=== PATIENT | male | born 1965 | race Caucasian/White ===

== ENCOUNTER 2018-12-25 16:20 | Emergency (ER) | payer BC ==
[~2018-12-25] VITALS: Ht 180.3 cm; Wt 129.3 kg
[~2018-12-25 16:20] MED LIST: IBUPROFEN600 MG ORAL; NORCO 5-325 TA1 EACH ORAL; ZOCOR20 MG ORAL
[2018-12-25] MEDS ORDERED: ATENOLOL25 MG ORAL (16:31)
[2018-12-25] MEDS ORDERED: CRESTOR10 M2 ORAL (16:31)
[2018-12-25] MEDS ORDERED: Isovue-300 100ml vial INJ PRN (16:45)
--- NOTE | 2018-12-25 17:30 | NUR ---
ED Nurse Note:pt. came with c/o sore throat, VSS, blood sent to labs, pt. went to CT scan
[2018-12-25 17:51] LABS: BASOPHILS % (AUTO) 1.5 % (0.0-2.0); EOSINOPHILS % (AUTO) 1.1 % (0.0-3.0); HEMATOCRIT 38.1 % (42.0-52.0); LYMPHOCYTES % (AUTO) 27.6 % (20.0-45.0); MEAN CORPUSCULAR VOLUME 93 FL (80-99); MONOCYTES % (AUTO) 6.9 % (1.0-10.0); NEUTROPHILS % (AUTO) 62.8 % (45.0-75.0); PLATELET COUNT 289 K/UL (150-450); RED BLOOD COUNT 4.09 M/UL (4.70-6.10); WHITE BLOOD COUNT 6.9 K/UL (4.8-10.8)
[2018-12-25 17:57] LABS: ANION GAP 8 mmol/L (5-15); BLOOD UREA NITROGEN 7 mg/dL (7-18); CALCIUM 9.6 MG/DL (8.5-10.1); CARBON DIOXIDE 27 MMOL/L (21-32); CHLORIDE 98 MMOL/L (98-107); CREATININE 0.9 MG/DL (0.55-1.30); POTASSIUM 4.2 MMOL/L (3.5-5.1); SODIUM 133 MMOL/L (136-145)
[2018-12-25 18:05] VITALS: BP 136/91
[2018-12-25 18:12] LABS: ALANINE AMINOTRANSFERASE 28 U/L (12-78); ALBUMIN 4.6 G/DL (3.4-5.0); ALBUMIN/GLOBULIN RATIO 1.6 (1.0-2.7); ALKALINE PHOSPHATASE 92 U/L (46-116); ASPARTATE AMINO TRANSFERASE 25 U/L (15-37); BILIRUBIN,TOTAL 0.6 MG/DL (0.2-1.0)
[2018-12-25] MEDS ORDERED: IBUPROFEN600 MG ORAL (19:17)
--- NOTE | 2018-12-25 19:17 | Emergency Room Report ---
History of Present Illness General Chief Complaint: Sore Throat Source: Medical Record Present Illness HPI 53-year-old male with no significant past medical history is here for 1 week of sore throat rating a 5 out of 10. Patient also reports neck swelling that started 1 week ago. Reports that he was at a chiropractor and they did a maneuver on his neck and ever since then he has been feeling his pain as well as tingling right arm. Patient denies any fever and chills, cough and congestion, recent travel. Reports that for years she has been dealing with brownish discoloration of his tongue however denies any pain at this time. Reports that his primary care provider has not done him for follow-up with ENT or dermatology. Denies change of appetite, weight loss, intolerance to cold or heat, mood changes. Resting tremor is noted when he closes his eyes and extends both arms. Denies any recent fall or injury. Denies having history of gastritis, is not a tobacco smoker. Denies alcohol intake and drug use. Allergies: Coded Allergies: No Known Allergies (Unverified , 08/05/14) Patient History Past Medical History: see triage record Past Surgical History: unable to obtain Pertinent Family History: none Immunizations: UTD Reviewed Nursing Documentation: PMH: Agreed; PSxH: Agreed Nursing Documentation-PMH Past Medical History: No History, Except For Hx Cardiac Problems: Yes Hx Hypertension: Yes Hx Cancer: No Hx Gastrointestinal Problems: Yes Hx Neurological Problems: No Review of Systems All Other Systems: negative except mentioned in HPI Physical Exam Vital Signs Date Time Temp Pulse Resp B/P (MAP) Pulse Ox O2 Delivery O2 Flow Rate FiO2 12/25/18 16:26 98.4 86 16 136/91 (106) 97 Room Air Sp02 EP Interpretation: reviewed, normal General Appearance: no apparent distress, alert, GCS 15, non-toxic Head: normocephalic, atraumatic Eyes: bilateral eye normal inspection, bilateral eye PERRL ENT: hearing grossly normal, normal pharynx, no angioedema, normal voice, TMs + canals normal, uvula midline, moist mucus membranes, dry mucus membranes Neck: full range of motion, supple, thyroid normal, no meningismus, no bony tend, no carotid bruits, supple/symm/no masses Respiratory: chest non-tender, lungs clear, normal breath sounds, no rhonchi, no respiratory distress, no retraction, no wheezing, speaking full sentences Cardiovascular #1: regular rate, rhythm, no edema, no murmur, normal capillary refill Cardiovascular #2: 2+ carotid (R), 2+ carotid (L) Gastrointestinal: normal bowel sounds, non tender, soft, non-distended, no guarding, no rebound Rectal: deferred Genitourinary: normal inspection, no CVA tenderness Musculoskeletal: back normal, digits/nails normal, gait/station normal, normal range of motion, non-tender, no calf tenderness Neurologic: alert, oriented x3, responsive, motor strength/tone normal, sensory intact, speech normal Psychiatric: judgement/insight normal, memory normal, mood/affect normal, no suicidal/homicidal ideation Skin: no rash Lymphatic: no adenopathy Medical Decision Making PA Attestation All my diagnosis and treatment plans were reviewed ad discussed with my supervising physician Dr. Chicas Diagnostic Impression: Primary Impression: Cervical strain Additional Impression: Tongue discoloration ER Course 53-year-old male with no significant past medical history is here for 1 week of sore throat rating a 5 out of 10. Patient also reports neck swelling that started 1 week ago. Reports that he was at a chiropractor and they did a maneuver on his neck and ever since then he has been feeling his pain as well as tingling right arm. Patient denies any fever and chills, cough and congestion, recent travel. Reports that for years she has been dealing with brownish discoloration of his tongue however denies any pain at this time. Reports that his primary care provider has not done him for follow-up with ENT or dermatology. Denies change of appetite, weight loss, intolerance to cold or heat, mood changes. Resting tremor is noted when he closes his eyes and extends both arms. Denies any recent fall or injury. Denies having history of gastritis, is not a tobacco smoker. Denies alcohol intake and drug use. Ddx considered but are not limited to : Cervical sprain versus strain versus fracture, thyromegaly, hypothyroidism, throat cancer metastatic cancer Vital signs: are WNL, pt. is afebrile H&PE are most consistent with: Cervical spine strain, tongue discoloration ORDERS: CT of soft tissue neck, ibuprofen ED INTERVENTIONS: None required at this time. DISCHARGE: At this time pt. is stable for d/c to home. Will provide printed patient care instructions, and any necessary prescriptions. Care plan and follow up instructions have been discussed with the patient prior to discharge. Patient to follow-up with ENT regarding follow-up at this time no masses noted on CT scan thyroid is within normal limits further testing possible EGD to be done as requested by primary care CT/MRI/US Diagnostic Results CT/MRI/US Diagnostic Results : Imaging Test Ordered: CT neck soft tissue Impression Within normal limits Last Vital Signs Date Time Temp Pulse Resp B/P (MAP) Pulse Ox O2 Delivery O2 Flow Rate FiO2 12/25/18 18:05 98.4 88 16 136/91 97 Room Air Disposition: HOME, SELF-CARE Condition: Stable Scripts Ibuprofen* (MOTRIN*) 600 Mg Tablet 600 MG ORAL Q8H PRN for For Pain, #30 TAB 0 Refills Prov: Kenya Armstrong 12/25/18 Patient Instructions: Cervical Strain and Sprain With Rehab-Sports[facility], Stomatitis, [id number] Additional Instructions: Follow-up with your primary care provider if worsening symptoms return to the emergency room at this time your thyroid hormone levels are within normal limits no masses noted on your CT scan of your neck. Throat culture was recommended to be collected Kenya Armstrong Dec 25, 2018 19:17
--- NOTE | 2018-12-25 19:30 | NUR ---
ED Nurse Note: Patient cleared for discharge by ER provider. Patient verbalized understanding of discharge instructions. ID band removed. Patient departed with all belongings.
[2018-12-25 19:31] VITALS: BP 136/91
--- NOTE | 2018-12-26 09:34 | Diagnostic Imaging Report ---
Indication: Neck pain. Mass Technique: Continuous helical imaging of the neck was obtained transaxially from the skull base to the upper thoracic spine during intravenous administration of nonionic contrast. 2-D coronal and sagittal reformatted images were obtained. Total Dose length Product (DLP): 573.[address] Dose Index Volume (CTDIvol): 19.21 mGy Comparison: None Findings: Skull base structures are unremarkable. Mastoids are clear bilaterally. The visualized nasopharynx, oropharynx, and hypopharynx appears unremarkable. There is no mass or asymmetry identified. Supraglottic structures including the epiglottis and aryepiglottic folds appear normal. 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 Where the anomalous vein joins is beyond the [id number] on this study. This is a normal embryonic variant. The larynx is unremarkable. The subglottic airway is clear. There is no lymphadenopathy. The parotid, thyroid, submandibular and sublingual glands appear unremarkable. Impression: Negative contrast-enhanced CT of the neck. Left SVC variant. The CT scanner at [facility] is accredited by the [employer] and the scans are performed using dose optimization techniques as appropriate to a performed exam including Automatic Exposure control.
== END 2018-12-25 19:35 | disposition home or self-care (01) ==
LOC: EMR 17:01
DX: S16.1XXA Strain of muscle, fascia and tendon at neck level, initial encounter (principal); K13.29 Other disturbances of oral epithelium, including tongue; I10 Essential (primary) hypertension; X58.XXXA Exposure to other specified factors, initial encounter; Y92.9 Unspecified place or not applicable
CPT/HCPCS: 36415; 70491; 80053; 84439; 84443; 84481; 85025; 85610; 85651; 85730; 86140; 86850; 86900; 86901; 99284; Q9967